=== PATIENT | female | born 1980 | race Caucasian/White ===

== ENCOUNTER 2016-08-11 13:30 | Outpatient (CLI) | payer OTHER ==
[~2016-08-11 13:30] MED LIST: ALBU2SYP9; CHOL100010; DOCU-94 PO; FOLI1TAB7 PO; METH5TAB2 PO; PRENTAB26 PO
[2016-08-11] MEDS ORDERED: LACTATED RINGER'S 1000ML 1,000 ML IV PRN (13:42)
[2016-08-11] MEDS ORDERED: LACTATED RINGER'S 1000ML 1,000 ML IV SCH (13:42)
[2016-08-11] MEDS ORDERED: PENICILLIN G POTASSIUM IV 3 MU in DEXTROSE 5% 100ML 100 ML IV PRN (13:45)
[2016-08-11] MEDS ORDERED: PENICILLIN G POTASSIUM IV 6 MU in DEXTROSE 5% 250ML 250 ML IV ONE (14:00)
[2016-08-11] MEDS ORDERED: MAGNESIUM SULFATE / WTR 1,000 ML IV SCH (14:00)
[2016-08-11] MEDS ORDERED: MAGNESIUM SULFATE 40GM/ WTR 1,000 ML BAG ONE (14:02)
[2016-08-11 14:14] LABS: HEMATOCRIT 33.5 % (37-47); MEAN CELL VOLUME 93.8 fL (80-100); MEAN CORPUSCULAR HEMOGLOBIN 33.3 pg (25-34); MEAN CORPUSCULAR HGB CONC 35.5 g/dl (32-36); MEAN PLATELET VOLUME 10.5 fL (7.4-10.4); PLATELET COUNT 174 K/uL (130-400); RED BLOOD COUNT 3.57 M/uL (4.2-5.4); WHITE BLOOD COUNT 17.34 K/uL (4.8-10.8)
[2016-08-11] MEDS ORDERED: INDOMETHACIN 50 MG SUPP PR STA ×2 (14:20→14:35)
[2016-08-11] MEDS ORDERED: BETAMETH SOD PHOS/ACETATE IA 6 MG/ML ONE (14:25)
[2016-08-11] MEDS ORDERED: NURSING VERBAL MED ORDER ONE (14:45)
[2016-08-11 15:00] LABS: BENZODIAZEPINE, URINE NEG (NEG); COCAINE,URINE NEG (NEG); PHENCYCLIDINE, URINE NEG (NEG)
[2016-08-15 12:28] LABS: METHADONE METABOLITE 4470 NG/ML (CUTOFF=100); METHADONE VERIFIC 2370 NG/ML (CUTOFF=100)
== END 2016-08-11 15:05 | disposition short-term general hospital (02) ==
LOC: C.LD 13:30 → C.OPB 13:30 → UNDOADMIN 13:30 → C.OPB 15:05 → EDSTATUS 15:23
PROVIDERS: ATTEND Obstetrics & Gynecology
DX: O62.9 Abnormality of forces of labor, unspecified (principal); O30.002 Twin pregnancy, unspecified number of placenta and unspecified number of amniotic sacs, second trimester; O09.523 Supervision of elderly multigravida, third trimester; O24.419 Gestational diabetes mellitus in pregnancy, unspecified control; Z3A.27 27 weeks gestation of pregnancy